=== PATIENT | female | born 1960 | race Two or more races ===

== ENCOUNTER 2017-02-17 15:35 | Emergency (ER) | payer MEDICAID ==
[~2017-02-17] VITALS: Ht 152.4 cm; Wt 59.0 kg
[~2017-02-17 15:35] MED LIST: AMLODIPINE BESY10 MG ORAL; BENAZEPRIL HCL10 MG ORAL; CIPROFLOXACIN500 M2 ORAL; HYDROCODON-ACE1 EA15 ORAL; NORCO 5-325 TA1 EACH ORAL; PHENAZOPYRIDIN100 MG ORAL; VALIUM5 MG ORAL
[2017-02-17 16:28] VITALS: BP 156/78
[2017-02-17] MEDS ORDERED: AMOXICILLIN500 MG ORAL (16:48)
[2017-02-17] MEDS ORDERED: BENADRYL25 MG ORAL (16:48)
[2017-02-17] MEDS ORDERED: PREDNISONE20 MG ORAL (16:48)
[2017-02-17 17:28] VITALS: BP 156/78
--- NOTE | 2017-02-17 22:30 | Emergency Room Report ---
History of Present Illness General Chief Complaint: General Complaint Source: Patient Present Illness HPI The patient is a 56-year-old female presenting for fever, cough, sore throat, and rash. She states that she first developed a fever, cough, and sore throat one week prior and then took aspirin yesterday and subsequently developed a rash. Rash is described as itchy around the face and arms. She denies having an allergic reaction in the past. She denies any known sick contacts recent travel. Pain is an 8/10 dull ache to the back of the throat does not radiate. She does admit to subjective fevers. She denies any other symptoms including nausea, vomiting, shortness of breath, chest pain Allergies: Coded Allergies: No Known Allergies (Unverified , 05/08/13) Patient History Past Medical History: see triage record Pertinent Family History: none Reviewed Nursing Documentation: PMH: Agreed, PSxH: Agreed Nursing Documentation-PMH Hx Hypertension: Yes Review of Systems All Other Systems: negative except mentioned in HPI Physical Exam Vital Signs Date Time Temp Pulse Resp B/P (MAP) Pulse Ox O2 Delivery O2 Flow Rate FiO2 02/17/17 15:55 98.1 86 20 168/81 98 Room Air Sp02 EP Interpretation: reviewed, normal General Appearance: no apparent distress, alert, GCS 15, non-toxic Head: normocephalic, atraumatic Eyes: bilateral eye normal inspection, bilateral eye PERRL ENT: normal voice, uvula midline, tonsillar swelling, pharyngeal erythema Neck: full range of motion, supple/symm/no masses Respiratory: chest non-tender, lungs clear, normal breath sounds, speaking full sentences Cardiovascular #1: regular rate, rhythm, no edema Musculoskeletal: back normal, gait/station normal, normal range of motion, non- tender Neurologic: alert, oriented x3, responsive, motor strength/tone normal, sensory intact, speech normal Psychiatric: judgement/insight normal, memory normal, mood/affect normal, no suicidal/homicidal ideation Skin: rash - erythema surrounding eyes and maculopapular rash bilat arms Lymphatic: adenopathy - cervical Medical Decision Making PA Attestation Dr. Rocha is my supervising physician. Patient management was discussed with my supervising physician Diagnostic Impression: Primary Impression: Allergic reaction Qualified Codes: T78.40XA - Allergy, unspecified, initial encounter Additional Impression: Pharyngitis, acute Qualified Codes: J02.9 - Acute pharyngitis, unspecified ER Course The patient is a 56-year-old female presenting for fever, cough, sore throat, and rash. Differential diagnosis include but not limited to pharyngitis, sinusitis, AOM, bronchitis, PNA Physical exam: Vitals within normal limits. Afebrile. No apparent distress HEENT exam: There is bilateral tonsillar edema, erythema, and exudate. Uvula midline. Moist mucous membranes. There is bilateral cervical lymphadenopathy. Lungs are clear to auscultation bilaterally Skin is warm and dry. Maculopapular rash of face and arms. No angioedema The patient will be discharged home with a prescription for amoxicillin, benadryl, and steroids and is given ER precautions. Patient will followup with primary care Last Vital Signs Date Time Temp Pulse Resp B/P (MAP) Pulse Ox O2 Delivery O2 Flow Rate FiO2 02/17/17 17:28 98.1 78 20 156/78 98 Room Air Status: improved Disposition: HOME, SELF-CARE Condition: Improved Scripts Diphenhydramine Hcl* (BENADRYL*) 25 Mg Capsule 25 MG ORAL Q6H Y for Itching, #30 CAP Prov: YESSICA ARMAS.A. 02/17/17 Prednisone* (PREDNISONE*) 20 Mg Tablet 20 MG ORAL DAILY, #5 TAB 0 Refills Prov: YESSICA ARMAS P.A. 02/17/17 Amoxicillin* (AMOXIL*) 500 Mg Capsule 500 MG ORAL Q12HR, #20 CAP Prov: YESSICA ARMAS.A. 02/17/17 Patient Instructions: Pharyngitis, Drug Allergy Additional Instructions: I discussed my findings with the patient. All questions and concerns have been answered. Treatment and medication compliance have been addressed. I advised the patient that they need to follow up with PMD in 3-5 days. Return to ED if symptoms worsen, new symptoms arise, or if needed for any reason. Patient verbalized understanding of discharge instructions. YESSICA ARMAS Feb 17, 2017 22:29
== END 2017-02-17 17:29 | disposition home or self-care (01) ==
LOC: EMR 16:13
DX: T78.40XA Allergy, unspecified, initial encounter (principal); X58.XXXA Exposure to other specified factors, initial encounter; J02.9 Acute pharyngitis, unspecified; R50.9 Fever, unspecified; R05 Cough; R21 Rash and other nonspecific skin eruption; I10 Essential (primary) hypertension
CPT/HCPCS: 99284

== ENCOUNTER 2020-03-09 18:36 | Emergency (ER) | payer MEDICAID, OTHER ==
[~2020-03-09] VITALS: Ht 149.9 cm; Wt 70.3 kg
[~2020-03-09 18:36] MED LIST changes: +AMOXICILLIN500 MG ORAL; +BENADRYL25 MG ORAL; +PREDNISONE20 MG ORAL
[2020-03-09 18:45] VITALS: BP 137/86
--- NOTE | 2020-03-09 18:45 | NUR ---
ED Nurse Note: pt walked into ED from home c/o earache and sorethroat for 1 week. Denies fever, chills, n/v.
--- NOTE | 2020-03-09 18:56 | Emergency Room Report ---
History of Present Illness General Chief Complaint: Earache Present Illness HPI 59-year-old female with no known significant past medical history here complaining of 1 week of left-sided throat and earache. Rates the pain 7 out of 10, intermittent. Denies any vertigo or dizziness. Denies any sinus pressure, cough or congestion, fever and chills. Denies any hearing loss. Reports that the pain started after her ear was very itchy and she started scratching it too much and felt pain immediately. Denies any pus drainage. Denies any tinnitus. Has not taken medication for symptom relief. Has already been to PCP PCP has told her that her ears are clear. Denies chest pain, shortness of breath, abdominal pain, nausea vomiting diarrhea. Appears to be stable with stable vital signs. Allergies: Coded Allergies: No Known Allergies (Unverified , 05/08/13) COVID-19 Screening Contact w/high risk pt: No Experienced COVID-19 symptoms?: No COVID-19 Testing performed SCISSORS GRINDER: No Patient History Past Medical History: see triage record Past Surgical History: none Pertinent Family History: none Now: No Immunizations: UTD Reviewed Nursing Documentation: PMH: Agreed; PSxH: Agreed Nursing Documentation-PMH Hx Hypertension: Yes Review of Systems All Other Systems: negative except mentioned in HPI Physical Exam Vital Signs Date Time Temp Pulse Resp B/P (MAP) Pulse Ox O2 Delivery O2 Flow Rate FiO2 03/09/20 18:40 98.1 87 18 137/86 (103) 99 Room Air Sp02 EP Interpretation: reviewed, normal General Appearance: no apparent distress, alert, GCS 15, non-toxic Head: normocephalic, atraumatic Eyes: bilateral eye normal inspection, bilateral eye PERRL ENT: tonsillar swelling, tonsillar exudate, other - pus left ear canal, no mastoid tenderness noted Neck: supple, other - left anterior cervical lymphadenopathy Respiratory: chest non-tender, lungs clear, normal breath sounds, no rhonchi, no retraction, speaking full sentences Cardiovascular #1: regular rate, rhythm, no edema, no murmur Gastrointestinal: non tender, soft Rectal: deferred Musculoskeletal: back normal Neurologic: alert, motor strength/tone normal, oriented x3, sensory intact, responsive, speech normal Psychiatric: judgement/insight normal, memory normal, mood/affect normal, no suicidal/homicidal ideation Skin: no rash Lymphatic: adenopathy - anterior cervical Medical Decision Making PA Attestation ALL Diagnosis and treatment plan reviewed and discussed with my supervising physician Dr. Christianson Diagnostic Impression: Primary Impression: Otitis media Additional Impression: Strep pharyngitis ER Course 59-year-old female with no known significant past medical history here complaining of 1 week of left-sided throat and earache. Rates the pain 7 out of 10, intermittent. Denies any vertigo or dizziness. Denies any sinus pressure, cough or congestion, fever and chills. Denies any hearing loss. Reports that the pain started after her ear was very itchy and she started scratching it too much and felt pain immediately. Denies any pus drainage. Denies any tinnitus. Has not taken medication for symptom relief. Has already been to PCP PCP has told her that her ears are clear. Denies chest pain, shortness of breath, abdominal pain, nausea vomiting diarrhea. Appears to be stable with stable vital signs. Ddx considered but are not limited to: strep pharyngitis, URI, tonsillitis, peritonsillar abscess, influneza, otitis media, otitis externa, mastoiditis Vital signs: are WNL, pt. is afebrile H&PE are most consistent with: OM, strep pharyngitis ORDERS: Augmentin, Motrin, Claritin ED INTERVENTIONS: None required at this time. DISCHARGE: At this time pt. is stable for d/c to home. Will provide printed patient care instructions, and any necessary prescriptions. Care plan and follow up instructions have been discussed with the patient prior to discharge. Take medication as directed, follow-up with primary care provider and ENT, if worsening symptoms return to the emergency room Last Vital Signs Date Time Temp Pulse Resp B/P (MAP) Pulse Ox O2 Delivery O2 Flow Rate FiO2 03/09/20 18:40 98.1 87 18 137/86 (103) 99 Room Air Disposition: HOME, SELF-CARE Condition: Stable Scripts Loratadine (Claritin*) 10 Mg Tablet 10 MG PO DAILY for Allergies, #30 TAB Prov: Amy York 03/09/20 Ibuprofen* (MOTRIN*) 600 Mg Tablet 600 MG ORAL THREE TIMES A DAY, #30 TAB Prov: Amy York 03/09/20 Amoxicillin/Potassium Clav 875-125* (AUGMENTIN 875-125 TABLET*) 1 Each Tablet 1 TAB ORAL TWICE A DAY for 10 Days, #20 TAB Prov: Amy York 03/09/20 Patient Instructions: Otitis Media, Adult, [id number], Strep Throat, [id number] Additional Instructions: Take medication as directed, follow with your primary care provider, if worsening symptoms return to emergency room Amy York Mar 09, 2020 18:56
[2020-03-09] MEDS ORDERED: LORATADINE10 M2 PO (18:57)
[2020-03-09] MEDS ORDERED: AUGMENTIN 875-1 EAC1 ORAL (18:57)
[2020-03-09] MEDS ORDERED: IBUPROFEN600 M1 ORAL (18:57)
[2020-03-09 19:04] VITALS: BP 118/72
--- NOTE | 2020-03-09 19:04 | NUR ---
ER DISCHARGE NOTE: Patient is cleared to be discharged per ERMD, pt is aox4, on room air, with stable vital signs. pt was given dc and prescription instructions, pt was able to verbalize understanding, pt id band. pt is able to ambulate with steady gait. pt took all belongings.
== END 2020-03-09 19:04 | disposition home or self-care (01) ==
LOC: EMR 18:55
DX: J02.0 Streptococcal pharyngitis (principal); H66.92 Otitis media, unspecified, left ear; I10 Essential (primary) hypertension; R59.1 Generalized enlarged lymph nodes
CPT/HCPCS: 99282

== ENCOUNTER 2020-04-12 08:40 | Emergency (ER) | payer OTHER ==
[~2020-04-12] VITALS: Ht 144.8 cm; Wt 69.4 kg
[~2020-04-12 08:40] MED LIST changes: +AUGMENTIN 875-1 EAC1 ORAL; +IBUPROFEN600 M1 ORAL; +LORATADINE10 M2 PO
[2020-04-12 08:45] VITALS: BP 172/87
--- NOTE | 2020-04-12 08:45 | NUR ---
ED Nurse Note: Pt walked in to ED from home c/o non radiating left side chest discomfort x2 days. Pt also reports that her heat is beating slowly. BP at triage is 172/87. Pt took Amlodipine this AM. Breathing even and unlabored. No SOB, on room air. Pt placed on ekg monitor. ERMD at bedside.
[2020-04-12] MEDS ORDERED: Aspirin Baby 81mg ORAL ONE (09:00)
[2020-04-12] MEDS ORDERED: Nitroglycerin Subl 0.4mg tab SL PRN (09:00)
--- NOTE | 2020-04-12 09:00 | Emergency Room Report ---
History of Present Illness General Chief Complaint: Chest Pain Source: Patient Present Illness HPI Patient is a 59-year-old female presents for increased left-sided chest discomfort for the past 2 days. Reports having feeling that her heart is beating slowly. Denies any chest discomfort. States that she had not been having any leg pain or swelling. Prior history of hypertension. Denies any prior cardiac history. Denies prior history of diabetes. Allergies: Coded Allergies: No Known Allergies (Unverified , 05/08/13) COVID-19 Screening Contact w/high risk pt: No Experienced COVID-19 symptoms?: No COVID-19 Testing performed PHOTOENGRAVING HELPER: No Patient History Past Medical History: see triage record Reviewed Nursing Documentation: PMH: Agreed; PSxH: Agreed Nursing Documentation-PMH Past Medical History: No History, Except For Hx Hypertension: Yes Review of Systems All Other Systems: negative except mentioned in HPI Physical Exam Vital Signs Date Time Temp Pulse Resp B/P (MAP) Pulse Ox O2 Delivery O2 Flow Rate FiO2 04/12/20 08:44 97.9 73 15 172/87 (115) 95 Room Air Sp02 EP Interpretation: reviewed, normal General Appearance: normal inspection, well appearing, no apparent distress, alert, GCS 15 Head: atraumatic ENT: normal ENT inspection, hearing grossly normal, normal voice Neck: normal inspection, full range of motion, supple, no bony tend Respiratory: normal inspection, lungs clear, normal breath sounds, no respiratory distress, no retraction, no wheezing Cardiovascular #1: regular rate, rhythm, no edema Gastrointestinal: normal inspection, normal bowel sounds, non tender, soft, no guarding, no hernia Genitourinary: no CVA tenderness Musculoskeletal: normal inspection, back normal, normal range of motion Neurologic: alert, motor strength/tone normal, rn camp III-XII nml as tested, oriented x3, responsive, speech normal, normal inspection Psychiatric: normal inspection, judgement/insight normal, mood/affect normal Medical Decision Making Diagnostic Impression: Primary Impression: Nonspecific chest pain ER Course Patient presented for chest discomfort. Differential diagnosis include was not limited to hypertensive crisis, coronary syndrome, pneumonia, coronavirus infection among others. Because of complexity of patient's case laboratory tests and imaging studies were ordered. EKG interpreted by me showed normal sinus rhythm with a rate of [address] or T wave changes. Patient was noted to be minimally hypertensive with blood pressure in the 160s. Rhythm strip showed normal sinus rhythm and the rate of 72. Patient's chest discomfort had a prolonged period of time to presentation and patient has a negative troponin. Patient does not appear to have any evidence of respiratory distress or pneumonia.Patient does appear to have some reproducible chest wall tenderness. Given the patient's prolonged time to presentation with consistent chest pain and this is unlikely to be cardiac in nature. Patient was offered observation in the hospital. Patient declined and stated that she felt better. Patient was given prescription for aspirin as well as prescription for Norvasc.Denies any change with exertion. Labs Test 04/12/20 09:08 04/12/20 09:30 White Blood Count 8.6 K/UL (4.8-10.8) Red Blood Count 4.93 M/UL (4.20-5.40) Hemoglobin 14.1 G/DL (12.0-16.0) Hematocrit 44.4 % (37.0-47.0) Mean Corpuscular Volume 90 FL (80-99) Mean Corpuscular Hemoglobin 28.7 PG (27.0-31.0) Mean Corpuscular Hemoglobin Concent 31.8 G/DL (32.0-36.0) Red Cell Distribution Width 12.9 % (11.6-14.8) Platelet Count 223 K/UL (150-450) Mean Platelet Volume 8.1 FL (6.5-10.1) Neutrophils (%) (Auto) 61.5 % (45.0-75.0) Lymphocytes (%) (Auto) 26.3 % (20.0-45.0) Monocytes (%) (Auto) 5.9 % (1.0-10.0) Eosinophils (%) (Auto) 5.0 % (0.0-3.0) Basophils (%) (Auto) 1.3 % (0.0-2.0) Prothrombin Time 10.8 SEC (9.30-11.50) Prothromb Time International Ratio 1.0 (0.9-1.1) Activated Partial Thromboplast Time 26 SEC (23-33) D-Dimer 0.57 mg/L FEU (0.00-0.49) Sodium Level 141 MMOL/L (136-145) Potassium Level 3.5 MMOL/L (3.5-5.1) Chloride Level 106 MMOL/L (98-107) Carbon Dioxide Level 28 MMOL/L (21-32) Anion Gap 7 mmol/L (5-15) Blood Urea Nitrogen 9 mg/dL (7-18) Creatinine 0.6 MG/DL (0.55-1.30) Estimat Glomerular Filtration Rate > 60 mL/min (>60) Glucose Level 93 MG/DL (74-106) Calcium Level 8.7 MG/DL (8.5-10.1) Total Bilirubin 0.5 MG/DL (0.2-1.0) Aspartate Amino Transf (AST/SGOT) 16 U/L (15-37) Alanine Aminotransferase (ALT/SGPT) 24 U/L (12-78) Alkaline Phosphatase 136 U/L (46-116) Troponin I 0.000 ng/mL (0.000-0.056) Total Protein 7.3 G/DL (6.4-8.2) Albumin 3.5 G/DL (3.4-5.0) Globulin 3.8 g/dL Albumin/Globulin Ratio 0.9 (1.0-2.7) Thyroid Stimulating Hormone (TSH) 0.995 uiU/mL (0.358-3.740) Urine Color Pale yellow Urine Appearance Clear Urine pH 7 (4.5-8.0) Urine Specific [place] 1.010 (1.005-1.035) Urine Protein Negative (NEGATIVE) Urine Glucose (UA) Negative (NEGATIVE) Urine Ketones Negative (NEGATIVE) Urine Blood Negative (NEGATIVE) Urine Nitrite Negative (NEGATIVE) Urine Bilirubin Negative (NEGATIVE) Urine Urobilinogen Normal MG/DL (0.0-1.0) Urine Leukocyte Esterase 2+ (NEGATIVE) Urine RBC 0 /HPF (0 - 2) Urine WBC 2-4 /HPF (0 - 2) Urine Squamous Epithelial Cells Few /LPF (NONE/OCC) Urine Bacteria Occasional /HPF (NONE) EKG Diagnostic Results Rate: normal Rhythm: NSR ST Segments: no acute changes Last Vital Signs Date Time Temp Pulse Resp B/P (MAP) Pulse Ox O2 Delivery O2 Flow Rate FiO2 04/12/20 08:44 97.9 73 15 172/87 (115) 95 Room Air Status: improved Disposition: HOME, SELF-CARE Condition: Stable Scripts Aspirin* (ASPIRIN*) 325 Mg Tablet 325 MG ORAL DAILY for Antiplatelet, #30 TAB Prov: Mariano Rocha MD 04/12/20 Amlodipine Besylate* (AMLODIPINE BESYLATE*) 5 Mg Tablet 5 MG ORAL DAILY for Hypertension, #30 TAB Prov: Mariano Rocha MD 04/12/20 Mariano Rocha MD Apr 12, 2020 09:00
--- NOTE | 2020-04-12 09:08 | NUR ---
ED Nurse Note: IV line established. Blood sent to lab.
[2020-04-12] MEDS ORDERED: Aspirin Baby 81mg ONE (09:11)
[2020-04-12 09:38] LABS: BASOPHILS % (AUTO) 1.3 % (0.0-2.0); HEMATOCRIT 44.4 % (37.0-47.0); HEMOGLOBIN 14.1 G/DL (12.0-16.0); LYMPHOCYTES % (AUTO) 26.3 % (20.0-45.0); MEAN CORPUSCULAR VOLUME 90 FL (80-99); MONOCYTES % (AUTO) 5.9 % (1.0-10.0); NEUTROPHILS % (AUTO) 61.5 % (45.0-75.0); PLATELET COUNT 223 K/UL (150-450); RED BLOOD COUNT 4.93 M/UL (4.20-5.40); RED CELL DISTRIBUTION WIDTH 12.9 % (11.6-14.8); WHITE BLOOD COUNT 8.6 K/UL (4.8-10.8)
[2020-04-12 09:42] LABS: ANION GAP 7 mmol/L (5-15); BLOOD UREA NITROGEN 9 mg/dL (7-18); CALCIUM 8.7 MG/DL (8.5-10.1); CARBON DIOXIDE 28 MMOL/L (21-32); CHLORIDE 106 MMOL/L (98-107); CREATININE 0.6 MG/DL (0.55-1.30); POTASSIUM 3.5 MMOL/L (3.5-5.1); SODIUM 141 MMOL/L (136-145)
[2020-04-12 09:44] LABS: APPEARANCE,URINE CLEAR; BILIRUBIN, URINE NEGATIVE (NEGATIVE); COLOR,URINE PALE YELLOW; GLUCOSE, URINE (UA) NEGATIVE (NEGATIVE); KETONES,URINE NEGATIVE (NEGATIVE); LEUKOCYTE ESTERASE ,URINE 2+ (NEGATIVE); NITRITE,URINE NEGATIVE (NEGATIVE); PH,URINE 7 (4.5-8.0); PROTEIN,URINE NEGATIVE (NEGATIVE); UROBILINOGEN,URINE NORMAL MG/DL (0.0-1.0)
[2020-04-12 09:56] LABS: ALANINE AMINOTRANSFERASE 24 U/L (12-78); ALBUMIN 3.5 G/DL (3.4-5.0); ALBUMIN/GLOBULIN RATIO 0.9 (1.0-2.7); ALKALINE PHOSPHATASE 136 U/L (46-116); ASPARTATE AMINO TRANSFERASE 16 U/L (15-37); BILIRUBIN,TOTAL 0.5 MG/DL (0.2-1.0)
[2020-04-12 09:58] VITALS: BP 135/68
--- NOTE | 2020-04-12 10:35 | NUR ---
ED Nurse Note: Xray at bedside.
[2020-04-12] MEDS ORDERED: AMLODIPINE BESYL5 MG ORAL ×3 (10:46→10:51)
[2020-04-12] MEDS ORDERED: ASPIRIN325 MG ORAL ×3 (10:46→10:51)
--- NOTE | 2020-04-12 10:47 | Diagnostic Imaging Report ---
EXAM: XR Chest, 1 View CLINICAL HISTORY: PAIN TECHNIQUE: Frontal view of the chest. COMPARISON: No relevant prior studies available. FINDINGS: Lungs: Unremarkable. No consolidation. Pleural space: Unremarkable. No pneumothorax. Heart: Unremarkable. No cardiomegaly. Mediastinum: Unremarkable. Bones/joints: Unremarkable. IMPRESSION: No focal infiltrate.
[2020-04-12 10:56] VITALS: BP 142/74
--- NOTE | 2020-04-12 10:56 | NUR ---
ED Nurse Note: Pt cleared by ERMD for discharge. DC instructions was given and explained to pt and verbalized understanding of teachings. prescription sent to the pharmacy of choice. All medical deviecs such as ID band and IV line removed. Pt is AAO x4, ambulatory and left with all personal belongings.
== END 2020-04-12 10:56 | disposition home or self-care (01) ==
LOC: EMR 09:00
DX: R07.9 Chest pain, unspecified (principal); I10 Essential (primary) hypertension
CPT/HCPCS: 36415; 71045; 80053; 81001; 84443; 84484; 85025; 85379; 85610; 85730; 93005; Z7502; 99284